=== PATIENT | female | born 1995 | race Caucasian/White ===

== ENCOUNTER 2021-06-12 08:03 | Emergency (ER) | payer OTHER, SELFPAY ==
[2021-06-12 08:10] VITALS: BP 125/78; PULSE 115; RESP 18; TEMP 38.2; O2SAT 100; BMI 41.5
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
[2021-06-12 08:44] LABS: Bacteria Urine None Seen; WBC Urine None Seen (0-5/HPF)
[2021-06-12 08:52] LABS: Appearance Urine UA CLEAR; Bilirubin Urine UA NEGATIVE (NEGATIVE); Color Urine UA YELLOW; Glucose Urine UA NEGATIVE (Negative); Ketones Urine UA NEGATIVE (NEGATIVE); Leukocyte Esterase Urine UA NEGATIVE (NEGATIVE); Nitrite Urine UA NEGATIVE (Negative); Occult Blood Urine UA 3+ (Negative); Protein Urine UA NEGATIVE (Negative); Specific Gravity Urine UA 1.015 (1.000-1.035); Urobilinogen Urine UA 0.2 E.U./dL (0.2)
[2021-06-12 09:08] LABS: Amorphous Sediment Urine 2+; Culture Indicated Urine Cult Not Indicated; Mucus Urine 2+ (Negative); RBC Urine 5-10/HPF (0-5/HPF)
[2021-06-12 09:09] LABS: Pregnancy Test Urine Negative (Negative)
[2021-06-12 09:28] VITALS: TEMP 38.2
[2021-06-12] MEDS: IBUPROFEN 400 MG TABLET 800 MG PO (09:28)
[2021-06-12 09:46] VITALS: BP 124/59; PULSE 88; RESP 16; O2SAT 99
[2021-06-12 09:46] LABS: UR Morphine/Opiate cutoff 300 Negative (Negative); Ur Creatinine Normal (Normal); Ur Specific Gravity Normal (Normal); Urine Amphetamines Negative (Negative); Urine Barbiturates Negative (Negative); Urine Cocaine Negative (Negative); Urine MDMA Negative (Negative); Urine Methamphetamines Negative (Negative); Urine Phencyclidine Negative (Negative); Urine Tetrahydrocannabinol Positive (Negative); Urine pH Normal (Normal)
[2021-06-12 09:47] LABS: Urine Benzodiazepines Negative (Negative); Urine Methadone Negative (Negative); Urine Oxycodone Negative (Negative); Urine Tricyclic Antidepressant Negative (Negative)
[2021-06-12] MEDS: SODIUM CHLORIDE 0.9% 1,000 ML 1000 ML IV (10:06)
[2021-06-12 10:07] LABS: Add Manual Diff / Slide Review NO; Basophils Absolute Auto 0 /uL (0-100); Basophils Percent Auto 0.6 % (0-2); Eosinophils Absolute Auto 100 /uL (0-450); Eosinophils Percent Auto 1.3 % (2-4); Hematocrit 41.8 % (36-46); Hemoglobin 14.1 g/dL (12.0-16.0); Lymphocytes Absolute Auto 1600 /uL (1100-4500); Lymphocytes Percent Auto 18.3 % (25-40); Mean Corpuscular HGB Conc 33.7 % (30-36); Mean Corpuscular Hemoglobin 31.2 PG (26-34); Mean Corpuscular Volume 92.4 fL (80-100); Monocytes Absolute Auto 400 /uL (0-900); Monocytes Percent Auto 4.6 % (3-14); Neutrophils Absolute Auto 6400 /uL (1500-7000); Neutrophils Percent Auto 75.2 % (50-75); Platelet Count 308 X10^3/uL (150-400); Red Blood Cell Count 4.53 X10^6/uL (4.0-5.2); Red Cell Distribution Width 12.5 % (11.6-14.8); White Blood Cell Count 8.6 X10^3/uL (4.5-11.0)
[2021-06-12 10:33] LABS: COVID19 -Nasal RAPID Negative (Negative)
[2021-06-12 11:21] LABS: Alanine Aminotransferase 20 IU/L (<35); Albumin 3.9 g/dL (3.5-5.0); Albumin Globulin Ratio 1.3 (1.0-2.8); Alkaline Phosphatase 67 U/L (38-126); Aspartate Aminotransferase 29 IU/L (14-36); BUN Creatinine Ratio 15.2 (6-22); Bilirubin Total 0.5 mg/dL (0.2-1.3); Blood Urea Nitrogen 7 mg/dL (7-17); Calcium 8.8 mg/dL (8.4-10.2); Carbon Dioxide 22 mmol/L (22-32); Chloride 112 mmol/L (98-107); Estimated Glomerular Filt Rate > 60.0 mL/min (>60); Ethanol (ETOH) < 10 mg/dL; Glucose 101 mg/dL (70-100); HEMOLYSIS < 15 (0-50); Sodium 140 mmol/L (137-145); Total Protein 6.9 g/dL (6.3-8.2)
[2021-06-12 11:23] LABS: Acetaminophen < 10 ug/mL (10-30); Salicylate < 1.0 mg/dL (<20)
[2021-06-12 11:51] LABS: TSH w/ Reflex to FT4 0.94 uIU/mL (0.47-4.68)
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
== END 2021-06-12 13:17 | disposition home or self-care (01) ==
PROVIDERS: Emergency Provider Emergency Medicine
DX: R45.89 Other symptoms and signs involving emotional state (principal); R50.9 Fever, unspecified; F84.0 Autistic disorder; Z20.822 Contact with and (suspected) exposure to COVID-19
CPT/HCPCS: 36415; 80053; 80305; 80320; 80329; 81001; 81025; 84443; 85025; 87635; 96360; 96361; 99284; C9803; G0480

== ENCOUNTER 2025-03-07 07:28 | Emergency (ER) | payer OTHER, SELFPAY ==
[2025-03-07] VITALS (12 sets, daily range): BP systolic 113–131; BP diastolic 57–64; PULSE 74–100; RESP 20; TEMP 36.1; O2SAT 97–100; BMI 42.4
--- NOTE | 2025-03-07 07:48 | ED.NAVMDI ---
HPI - Nausea/Vomiting/Diarrhea General Chief complaint: Nausea/Vomiting/Diarrhea Stated complaint: 11 weeks , throwing up need fluids per pt Time Seen by Provider: 03/07/25 07:44 Source: patient Mode of arrival: Ambulatory History of Present Illness HPI Narrative: 29-year-old female approximately 11 weeks according to her last menstrual period which was his in mid December. Patient had a ultrasound completed last week in [place] that showed a normal viable . She has continuously had nonbilious nonbloody vomit multiple times and most mostly in the evenings but she has also had watery loose stools recently. Patient reports being dehydrated despite attempting p.o. intake but feeling nauseous and unable to further hydrate. Patient denies passing any clots vaginal bleeding abdominal pain or any urinary complaints. Other than what is stated 14 point review of system is negative Related Data Home Medications Medication Instructions Recorded Confirmed vitamin-ferrous sulfate tab PO 01/24/25 01/24/25 27 mg iron-folic acid 0.8 mg tablet Previous Rx's Medication Instructions Recorded ondansetron HCl 4 mg tablet 4 mg PO Q8H PRN nausea and 03/07/25 vomiting #30 tabs Allergies Allergy/AdvReac Type Severity Reaction Status Date / Time kiwi Allergy Intermediate Hives Verified 01/24/25 15:33 pineapple Allergy Intermediate Hives Verified 01/24/25 15:33 morphine AdvReac Severe stopped Verified 01/24/25 15:33 breathing acetaminophen AdvReac Upset Verified 01/24/25 15:33 stomach Review of Systems Review of Systems ROS Unobtainable: All systems reviewed & are unremarkable except as noted in HPI and below Patient History Medical History (Updated 03/07/25 @ 09:56 by Rubio Farfan DO) Cryptosporidiasis Irregular menstrual cycle Conjunctivitis Surgical History (Updated 01/24/25 @ 15:37 by Sydney Fuentes, WILLOW) [place] teeth extracted Family History (Updated 01/24/25 @ 15:40 by Sydney Fuentes, WILLOW) Father Diabetes mellitus Hypertension Hyperlipidemia Mother Hyperlipidemia Hypertension Grandmother Breast cancer Aunt Breast cancer Social History marital status: unmarried,living together number of children: 0 household members: significant other and family (s/o's parents) lives independently: Yes caregiver/support person: No housing: house pets and animals: No education level: college (some college) 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) current occupational exposures/hazards: No special tyler needs: No travel history: over 6 months ago seatbelt use: sometimes (much more consistent since becoming ) helmet use: Yes water heater temp set < 120 deg: Yes working smoke detector in home: Yes fire extinguisher in home: Yes carbon monox detector in home: Yes firearms in home: No do you feel safe at home: Yes Smoking Status: Never smoker Tobacco: How many years used: 13 second hand exposure: No alcohol intake: never substance use type: former substance user (mostly only as a teen) and marijuana (stopped w/ +UPT) during the past year weight has: remained stable well-balanced diet: about half the time daily servings fruits/ve-1 (1-2) caffeine: Yes (mostly quit with ) Type(s) of exercise: walking and other (hiking) Smoking Status: Never smoker Exam Narrative Exam Narrative: GENERAL: [29] year old patient appears stated age. Well-developed patient, in mild distress. HEAD: Atraumatic. Normocephalic. EYES: Pupils equal round and reactive. Extraocular motions intact. No scleral icterus. No injection or drainage. ENT: Nose without bleeding, purulent drainage. Throat without erythema, tonsillar hypertrophy or exudate. Airway patent. NECK: Trachea midline. Non tender CARDIOVASCULAR: Regular rate and rhythm without murmurs, gallops, or rubs. RESPIRATORY: Clear to auscultation. Breath sounds equal bilaterally. No wheezes, rales, or rhonchi. GASTROINTESTINAL: Abdomen soft, non-tender, nondistended. EXTREMITIES: No edema or joint tenderness. BACK: Nontender without deformity or crepitance. No flank tenderness. NEURO: AOx3. SKIN: No rash or erythema of visible areas Initial Vital Signs Initial Vital Signs: Vital Signs Pulse Rate 100 H 03/07/25 07:34 Pulse Oximetry 98 03/07/25 07:34 Course Orders Ordered: ED Orders 03/07/25 07:50 Complete Blood Count AUTO DIFF Stat Comprehensive Metabolic Panel Stat HCG Quantitative /Beta subunit Stat 03/07/25 07:52 Stool Culture Stat Discontinued Medications Sodium Chloride (Normal Saline 0.9%) 1,000 mls @ 1,000 mls/hr IV BOLUS ONE Stop: 03/07/25 08:51 Last Infusion: 03/07/25 09:39 Dose: Infused Documented By: Admin: 03/07/25 07:59 Dose: 1,000 mls/hr Documented By: MECHELLE Ondansetron HCl (Ondansetron 4 Mg/2 Ml Inj) 4 mg IV NOW ONE Stop: 03/07/25 07:53 Last Admin: 03/07/25 07:59 Dose: 4 mg Documented By: MECHELLE Vital Signs Vital signs: Vital Signs - 8 hr 03/07/25 07:34 03/07/25 07:35 03/07/25 08:00 Temperature 97 F L Pulse Rate 100 H 98 H 88 Respiratory Rate 20 Blood Pressure 131/64 Pulse Oximetry 98 98 97 Oxygen Delivery Method Room Air 03/07/25 08:01 03/07/25 08:01 03/07/25 08:30 Temperature Pulse Rate 88 76 Respiratory Rate Blood Pressure 123/58 L Pulse Oximetry 98 98 Oxygen Delivery Method 03/07/25 08:31 03/07/25 08:31 03/07/25 09:00 Temperature Pulse Rate 77 82 Respiratory Rate Blood Pressure 124/60 Pulse Oximetry 98 99 Oxygen Delivery Method 03/07/25 09:01 03/07/25 09:01 03/07/25 09:30 Temperature Pulse Rate 77 82 Respiratory Rate Blood Pressure 130/59 L Pulse Oximetry 100 99 Oxygen Delivery Method 03/07/25 09:31 03/07/25 09:31 Temperature Pulse Rate 74 Respiratory Rate Blood Pressure 119/59 L Pulse Oximetry 100 Oxygen Delivery Method MDM - Nausea/Vomiting/Diarrhea Lab Data 03/07/25 07:50 03/07/25 07:50 Labs: Lab Results 03/07/25 Range/Units 07:50 WBC 11.9 H (4.5-11.0) X10^3/uL RBC 4.37 (4.0-5.2) X10^6/uL Hgb 13.8 (12.0-16.0) g/dL Hct 38.7 (36-46) % MCV 88.7 (80-100) fL MCH 31.7 (26-34) PG MCHC 35.7 (30-36) % RDW 12.8 (11.6-14.8) % Plt Count 262 (150-400) X10^3/uL Neut % (Auto) 78.0 H (50-75) % Lymph % (Auto) 15.8 L (25-40) % Frontier % (Auto) 4.8 (3-14) % Eos % (Auto) 1.1 L (2-4) % Baso % (Auto) 0.3 (0-2) % Neut # (Auto) 9300 H (9613-2270) /uL Lymph # (Auto) 1900 (7572-6122) /uL Frontier # (Auto) 600 (0-900) /uL Eos # (Auto) 100 (0-450) /uL Baso # (Auto) 0 (0-100) /uL Sodium 136 L (137-145) mmol/L Potassium 3.9 (3.4-5.1) mmol/L Chloride 107 (98-107) mmol/L Carbon Dioxide 19 L (22-32) mmol/L BUN 8 (7-17) mg/dL Creatinine 0.46 L (0.52-1.04) mg/dL Estimated GFR > 60 (>60) mL/min BUN/Creatinine Ratio 17.4 (6-22) Glucose 106 H (70-99) mg/dL Calcium 9.2 (8.4-10.2) mg/dL Total Bilirubin 0.6 (0.2-1.3) mg/dL AST 34 (14-36) IU/L ALT 27 (<35) IU/L Alkaline Phosphatase 59 (38-126) U/L Total Protein 7.2 (6.3-8.2) g/dL Albumin 4.2 (3.5-5.0) g/dL Globulin 3.0 (1.7-4.1) g/dL Albumin/Globulin Ratio 1.4 (1.0-2.8) HCG, Quant [id number] mIU/mL MDM Narrative Medical decision making narrative: All lab work vital signs nurse triage note medication list in all previous ER visits reviewed. Patient given normal saline 1 L bolus Zofran 4 mg IV. Differential diagnosis includes hyperemesis gravidarum dehydration electrolyte derangement. Follow up with OBGYN in 1-2 weeks patient is already on vitamin. We will discharge home on Zofran prescription. Discharge Plan Departure Patient Disposition: Home Clinical Impression: Hyperemesis gravidarum Instructions: DI for Hyperemesis Gravidarum Activity Restrictions/Additional Instructions: Return with new or worsening symptoms. Take your medicines as directed follow up with OBGYN in 1-2 weeks. Beta HCG [id number] Prescriptions: New ondansetron HCl 4 mg tablet 4 mg PO Q8H PRN (Reason: nausea and vomiting) Qty: 30 0RF No Action vit-ferrous sulfat-FA 27 mg iron- 0.8 mg tablet PO Stand Alone Forms: Patient Portal/API/Survey
[2025-03-07 07:58] LABS: Add Manual Diff / Slide Review NO; Basophils Absolute Auto 0 /uL (0-100); Basophils Percent Auto 0.3 % (0-2); Eosinophils Absolute Auto 100 /uL (0-450); Eosinophils Percent Auto 1.1 % (2-4); Hematocrit 38.7 % (36-46); Hemoglobin 13.8 g/dL (12.0-16.0); Lymphocytes Absolute Auto 1900 /uL (1100-4500); Lymphocytes Percent Auto 15.8 % (25-40); Mean Corpuscular HGB Conc 35.7 % (30-36); Mean Corpuscular Hemoglobin 31.7 PG (26-34); Mean Corpuscular Volume 88.7 fL (80-100); Monocytes Absolute Auto 600 /uL (0-900); Monocytes Percent Auto 4.8 % (3-14); Neutrophils Absolute Auto 9300 /uL (1500-7000); Platelet Count 262 X10^3/uL (150-400); Red Blood Cell Count 4.37 X10^6/uL (4.0-5.2); Red Cell Distribution Width 12.8 % (11.6-14.8); White Blood Cell Count 11.9 X10^3/uL (4.5-11.0)
[2025-03-07] MEDS: ONDANSETRON 4 MG/2 ML INJ IV (07:59)
[2025-03-07] MEDS: SODIUM CHLORIDE 0.9% 1,000 ML 1000 ML IV (07:59)
[2025-03-07 08:15] LABS: Alanine Aminotransferase 27 IU/L (<35); Albumin 4.2 g/dL (3.5-5.0); Albumin Globulin Ratio 1.4 (1.0-2.8); Alkaline Phosphatase 59 U/L (38-126); Aspartate Aminotransferase 34 IU/L (14-36); BUN Creatinine Ratio 17.4 (6-22); Bilirubin Total 0.6 mg/dL (0.2-1.3); Blood Urea Nitrogen 8 mg/dL (7-17); Calcium 9.2 mg/dL (8.4-10.2); Carbon Dioxide 19 mmol/L (22-32); Chloride 107 mmol/L (98-107); Estimated Glomerular Filt Rate > 60 mL/min (>60); Glucose 106 mg/dL (70-99); HEMOLYSIS < 15 (0-50); Potassium 3.9 mmol/L (3.4-5.1); Sodium 136 mmol/L (137-145); Total Protein 7.2 g/dL (6.3-8.2)
[2025-03-07 08:57] LABS: HCG Quantitative /Beta subunit 128510 mIU/mL
== END 2025-03-07 10:07 | disposition home or self-care (01) ==
PROVIDERS: Emergency Provider Family Medicine
DX: O21.0 Mild hyperemesis gravidarum (principal); Z3A.11 11 weeks gestation of pregnancy
CPT/HCPCS: 36415; 80053; 84702; 85025; 96361; 96374; 99284; J2405